=== PATIENT | female | born 1990 | race Caucasian/White ===

== ENCOUNTER 2024-07-17 01:08 | Emergency (ER) | payer MEDICAID, SELFPAY ==
[2024-07-17 01:08] VITALS: BMI 32.8
--- NOTE | 2024-07-17 01:28 | PC.NURSE ---
NO ANSWER AT ER LOBBY OR OUTSIDE ER TO BE SEEN BY PROVIDER.
--- NOTE | 2024-07-17 01:50 | PC.NURSE ---
NO ANSWER AT ER LOBBY.
== END 2024-07-17 01:50 | disposition left against medical advice (07) ==
LOC: SERX 01:55
PROVIDERS: Emergency Provider Emergency Medicine
DX: Z53.21 Procedure and treatment not carried out due to patient leaving prior to being seen by health care provider (principal)